=== PATIENT | male | born 1970 | race Caucasian/White ===

== ENCOUNTER 2017-12-01 12:07 | Emergency (ER) | payer MEDICARE, OTHER ==
[~2017-12-01] VITALS: Ht 182.9 cm; Wt 86.2 kg
[~2017-12-01 12:07] MED LIST: ACETAMINOPHEN500 MG PO; HYDHCL25 PO; LISI20 PO
[2017-12-01] MEDS ORDERED: CYCL10 PO (13:14)
[2017-12-01] MEDS ORDERED: METPRE4DP PO (13:14)
[2017-12-01] MEDS ORDERED: Norco 5-325 Ta1 EACH PO (13:14)
== END 2017-12-01 13:44 | disposition home or self-care (01) ==
LOC: ER 12:07
DX: T63.441A Toxic effect of venom of bees, accidental (unintentional), initial encounter (principal); M54.9 Dorsalgia, unspecified; M54.2 Cervicalgia; M25.519 Pain in unspecified shoulder; F17.200 Nicotine dependence, unspecified, uncomplicated; Z79.899 Other long term (current) drug therapy
CPT/HCPCS: 72070; 72100; 99283; Q0163

== ENCOUNTER 2018-06-03 21:30 | Emergency (ER) | payer MEDICARE ==
[~2018-06-03] VITALS: Ht 182.9 cm; Wt 83.9 kg
[~2018-06-03 21:30] MED LIST changes: +CYCL10 PO; +METPRE4DP PO; +Norco 5-325 Ta1 EACH PO
== END 2018-06-03 22:37 | disposition left against medical advice (07) ==
LOC: ER 21:30
DX: K40.90 Unilateral inguinal hernia, without obstruction or gangrene, not specified as recurrent (principal); F17.210 Nicotine dependence, cigarettes, uncomplicated
CPT/HCPCS: 99283

== ENCOUNTER 2018-06-03 23:45 | Emergency (ER) | payer MEDICARE ==
[~2018-06-03] VITALS: Ht 182.9 cm; Wt 79.4 kg
[2018-06-04 00:24] LABS: BASOPHILS ABSOLUTE AUTO 0.08 K/mm3 (0.00-0.23); BASOPHILS PERCENT AUTO 1 % (0-2); EOSINOPHILS ABSOLUTE AUTO 0.14 K/mm3 (0.00-0.68); EOSINOPHILS PERCENT AUTO 2 % (0-6); Hematocrit 40.6 % (37.0-53.0); Hemoglobin 13.7 g/dL (13.5-17.5); IMMATURE GRAN ABSOLUTE AUTO 0.02 K/mm3 (0.00-0.10); IMMATURE GRAN PERCENT AUTO 0 % (0-1); LYMPHOCYTES ABSOLUTE AUTO 1.31 K/mm3 (0.84-5.20); LYMPHOCYTES PERCENT AUTO 15 % (21-46); MONOCYTES ABSOLUTE AUTO 0.51 K/mm3 (0.16-1.47); MONOCYTES PERCENT AUTO 6 % (4-13); Mean Corpuscular HGB 32.4 pg (26.0-34.0); Mean Corpuscular HGB Conc 33.7 g/dL (31.5-36.5); Mean Corpuscular Volume 96 fL (80-100); Mean Platelet Volume 10.2 fL (9.1-12.4); NEUTROPHILS PERCENT AUTO 77 % (41-73); Platelet Count 238 K/mm3 (150-400); RDW Coefficient Variation 13.1 % (11.7-14.2); RDW Standard Deviation 46.7 fL (35.1-46.3); Red Blood Cell Count 4.23 M/mm3 (4.30-5.90); White Blood Cell Count 8.86 K/mm3 (4.00-11.30)
[2018-06-04 00:35] LABS: Prothrombin Time Results 10.3 Sec (9.7-11.5)
[2018-06-04 00:39] LABS: Anion Gap 9 mmol/L (6-16); Blood Urea Nitrogen 14 mg/dL (8-24); Bun/Creatinine Ratio 16.5 (12.0-20.0); CO2, Blood 26 mmol/L (21-32); Calcium, Blood 8.5 mg/dL (8.5-10.1); Chloride, Blood 106 mmol/L (98-108); Creatinine, Blood 0.85 mg/dL (0.60-1.20); Ethanol (Alcohol), Blood, Med 56 mg/dL; Glomerular Filtration Rate >60 (60-); Glucose, Blood 95 mg/dL (70-99); Potassium, Blood 4.2 mmol/L (3.5-5.5); Sodium, Blood 141 mmol/L (136-145)
== END 2018-06-04 02:58 | disposition home or self-care (01) ==
LOC: ER 23:45
PROVIDERS: Emergency Medicine
DX: K40.30 Unilateral inguinal hernia, with obstruction, without gangrene, not specified as recurrent (principal); F17.210 Nicotine dependence, cigarettes, uncomplicated
CPT/HCPCS: 36415; 74176; 80048; 85025; 85610; 96361; 96374; 96375; 99284-25; G0480; J1885; J2405; J3010; J7030

== ENCOUNTER 2018-11-09 20:08 | Inpatient (IN) | payer MEDICARE ==
[~2018-11-09] VITALS: Ht 182.9 cm; Wt 76.5 kg
[2018-11-09 20:33] LABS: Source, Urine Clean Catch
[2018-11-09 20:39] LABS: BASOPHILS ABSOLUTE AUTO 0.12 K/mm3 (0.00-0.23); BASOPHILS PERCENT AUTO 2 % (0-2); EOSINOPHILS ABSOLUTE AUTO 0.38 K/mm3 (0.00-0.68); EOSINOPHILS PERCENT AUTO 5 % (0-6); Hematocrit 33.8 % (37.0-53.0); Hemoglobin 11.1 g/dL (13.5-17.5); IMMATURE GRAN ABSOLUTE AUTO 0.02 K/mm3 (0.00-0.10); IMMATURE GRAN PERCENT AUTO 0 % (0-1); LYMPHOCYTES ABSOLUTE AUTO 0.98 K/mm3 (0.84-5.20); LYMPHOCYTES PERCENT AUTO 14 % (21-46); MONOCYTES ABSOLUTE AUTO 0.66 K/mm3 (0.16-1.47); MONOCYTES PERCENT AUTO 9 % (4-13); Mean Corpuscular HGB 31.1 pg (26.0-34.0); Mean Corpuscular HGB Conc 32.8 g/dL (31.5-36.5); Mean Corpuscular Volume 95 fL (80-100); Mean Platelet Volume 9.3 fL (9.1-12.4); NEUTROPHILS ABSOLUTE AUTO 4.85 K/mm3 (1.96-9.15); NEUTROPHILS PERCENT AUTO 69 % (41-73); Platelet Count 708 K/mm3 (150-400); RDW Coefficient Variation 14.1 % (11.7-14.2); RDW Standard Deviation 48.7 fL (35.1-46.3); Red Blood Cell Count 3.57 M/mm3 (4.30-5.90); White Blood Cell Count 7.01 K/mm3 (4.00-11.30)
[2018-11-09 20:43] LABS: Appearance, Urine Clear (Clear); Bilirubin, Urine Neg (Neg); Blood, Urine 3+ (Neg); Color, Urine Yellow (P-Yellow); Glucose Qualitative, Urine Neg (Neg); Ketones, Urine Neg (Neg); Leukocyte Esterase, Urine Neg (Neg); Nitrite, Urine Neg (Neg); Protein, Urine 2+ (Neg); Specific Gravity, Urine 1.015 (1.003-1.022); Urobilinogen, Urine NORM (Normal); pH, Urine 6.5 (5.0-8.0)
[2018-11-09 20:45] LABS: Calcium, Ionized (POC) 1.08 mmol/L (1.10-1.46); Chloride (POC) 99 mmol/L (98-108); Creatinine (POC) 12.5 mg/dL (0.8-1.3); Glucose (ISTAT POC) 102 mg/dL (70-99); Hemoglobin (POC) 10.2 g/dL (13.5-17.5); Potassium (POC) 4.6 mmol/L (3.5-5.5); Sodium (POC) 133 mmol/L (135-148); Total CO2 (POC) 19 mmol/L (21-32)
[2018-11-09 20:51] LABS: White Blood Cells, Urine 0-2 /hpf (0-5)
[2018-11-09 20:52] LABS: Bacteria Not Seen /hpf; Squamous Epithelial Cells Rare /hpf (Few)
[2018-11-09 21:03] LABS: Magnesium, Blood 2.9 mg/dL (1.6-2.4)
[2018-11-09 21:08] LABS: Albumin, Blood 3.1 g/dL (3.4-5.0); Albumin/Globulin Ratio 0.7 (0.8-1.8); Bilirubin, Total 0.3 mg/dL (0.1-1.0); Bun/Creatinine Ratio 7.9 (12.0-20.0); Calcium, Blood 8.6 mg/dL (8.5-10.1); Creatinine, Blood 12.2 mg/dL (0.60-1.20); Globulin, Blood 4.5 g/dL (2.2-4.0); Potassium, Blood 4.6 mmol/L (3.5-5.5); Total Protein, Blood 7.6 g/dL (6.4-8.2)
[2018-11-10 01:39] LABS: U Amphetamine Screen DETECTED; U Barbituate Screen DETECTED; U Benzodiazapine Screen DETECTED; U Buprenorphine Screen Not Detected; U Cannabinoids Screen Not Detected; U Cocaine Screen Not Detected; U Methadone Screen Not Detected; U Methamphetamine Screen DETECTED; U Opiates Screen DETECTED; U Oxycodone Screen Not Detected; U Phencyclidine Screen Not Detected; U Propoxyphene Screen Not Detected
[2018-11-10 04:22] LABS: BASOPHILS ABSOLUTE AUTO 0.11 K/mm3 (0.00-0.23); BASOPHILS PERCENT AUTO 2 % (0-2); EOSINOPHILS ABSOLUTE AUTO 0.41 K/mm3 (0.00-0.68); EOSINOPHILS PERCENT AUTO 6 % (0-6); Hematocrit 31.2 % (37.0-53.0); Hemoglobin 10.6 g/dL (13.5-17.5); IMMATURE GRAN ABSOLUTE AUTO 0.02 K/mm3 (0.00-0.10); IMMATURE GRAN PERCENT AUTO 0 % (0-1); LYMPHOCYTES ABSOLUTE AUTO 1.13 K/mm3 (0.84-5.20); LYMPHOCYTES PERCENT AUTO 16 % (21-46); MONOCYTES ABSOLUTE AUTO 0.82 K/mm3 (0.16-1.47); MONOCYTES PERCENT AUTO 12 % (4-13); Mean Corpuscular HGB 31.2 pg (26.0-34.0); Mean Corpuscular Volume 92 fL (80-100); Mean Platelet Volume 9.8 fL (9.1-12.4); NEUTROPHILS ABSOLUTE AUTO 4.45 K/mm3 (1.96-9.15); NEUTROPHILS PERCENT AUTO 64 % (41-73); Platelet Count 673 K/mm3 (150-400); RDW Coefficient Variation 14.1 % (11.7-14.2); RDW Standard Deviation 47.3 fL (35.1-46.3); White Blood Cell Count 6.94 K/mm3 (4.00-11.30)
[2018-11-10 05:15] LABS: Alanine Aminotransfer (ALT/SGP 80 U/L (12-78); Albumin, Blood 2.6 g/dL (3.4-5.0); Albumin/Globulin Ratio 0.7 (0.8-1.8); Alk Phos 147 U/L (50-136); Anion Gap 14 mmol/L (6-16); Aspartate Aminotrans (AST/SGOT 44 U/L (12-37); Bilirubin, Total 0.3 mg/dL (0.1-1.0); Blood Urea Nitrogen 104 mg/dL (8-24); Bun/Creatinine Ratio 8.6 (12.0-20.0); CO2, Blood 22 mmol/L (21-32); Chloride, Blood 100 mmol/L (98-108); Globulin, Blood 3.9 g/dL (2.2-4.0); Glomerular Filtration Rate 5 (60-); Glucose, Blood 121 mg/dL (70-99); Phosphorus, Blood 8.2 mg/dL (2.5-4.9); Potassium, Blood 4.6 mmol/L (3.5-5.5); Sodium, Blood 136 mmol/L (136-145); Total Protein, Blood 6.5 g/dL (6.4-8.2)
--- NOTE | 2018-11-10 07:31 | NUR ---
SHIFT SUMMARY: PATIENT ADMITTED EARLIER THIS SHIFT. PATIENT ABLE TO TRANSFER SELF FROM THE GURNEY TO THE BED WITH ONE PERSON ASSIST BUT WAS VERY WEAK AND SHAKEY. PATIENT IS A POOR HISORTIAN. PATIENT HAS BEEN IRRITABLE AND CURSING AT STAFF. PATIENT VERY FRUSTRATED THAT HIS NEWLY PERCHASED CELL PHONE IS NOT WORKING WELL. PATIENT EASILY AGITATED AND ESCALATES QUICKLY. PATIENT DIFFICULT TO VERBALLY DESCALATE. PATIENT KEEPS STATING "IF I WERE IN A LIQURE STORE, I WOULDN'T HAVE THIS PROBLEM." AND "IF I WAS HOME DOING WHAT I NORMALLY DO I WOULDN'T BE FEELING LIKE THIS." AT ONE POINT PATIENT WAS HITTING HIS CELL PHONE AGAINST THE TABLE SAYING HE WAS TRYING TO BREAK IT IN TWO. PATIENT ALSO THREW HIS CELL PHONE ON THE FLOOR AT ONE POINT. EDUCATION ATTEMPTED BUT HAS APPEARED UNSUCCESSFUL. CIWA'S CHARTED. PATIENT MEDICATED FOR CIWA'S PER EMAR. REPORT GIVEN TO ONCOMING RN.
--- NOTE | 2018-11-10 11:37 | NUR ---
PT RECEIVING HEMO DIALYSIS. APPEARS VERY CONFUSED. ASKING FOR PAIN MEDICATION FOR HEADACHE AND THEN FALLING ASLEEP. PT EMPTYING HIS WALLET ONTO BED WHEN AWAKE. LOOKING FOR "PHONE NUMBERS" GETTING AGITATED WHEN ASKED IF HE NEEDS HELP TELLS STAFF TO GET THE "F" AWAY FROM HIM. IV ATIVAN AND LIBRIUM PROVIDED TO PATIENT. APPEARS TO CALM HIM DOWN SLIGHTLY. WILL CONTINUE TO MONITOR THIS PATIENT CLOSELY.
--- NOTE | 2018-11-10 15:30 | NUR ---
MAKING ROUNDS ASKING ABOUT THIS PATIENT. PT IS RESTING COMFORTABLY AT THIS TIME. DECISION TO HOLD ON VITALS SINCE PATIENT BECOMES AGITATED WHEN HE WAKES. IF PATIENT BECOMES INCREASINGLY AGITATED AND APPEARS PSYCHOTIC WILL ORDER ZYPREXA PO. WILL CONTINUE TO MONITOR THIS PATIENT CLOSELY.
--- NOTE | 2018-11-10 17:37 | NUR ---
END OF SHIFT; PT HAS EPISODES OF ANGER NOTED TODAY WHEN HE STRIKES OUT AND THROWS THINGS OFF HIS BEDSIDE TABLE. PT IS CONFUSED FOR MOST OF DAY. YELLING AT STAFF AND CALLING THEM [facility]. HE RECEIVED DIALYSIS TODAY FOR 3 HOURS AND 2 LITERS WAS REMOVED. HIS BLOOD PRESSURE IS ELEVATED AT THIS TIME AND HE RECEIVED 10MG HYDRALAZINE IVP FOR SAME. HE COMPLAINS INTERMITTENTLY OF A HEADACHE BUT THEN DENIES HE HAS ONE A FEW MINUTES LATER. HE DOES STAY IN BED DURING DAY AND DOES NOT TRY TO GET UP. HE IS MONITORED CLOSELY DURING DAY.
--- NOTE | 2018-11-10 18:10 | NUR ---
PT INSISTING ON LEAVING. CALLING [facility] [facility] TO STAFF THROWING THINGS. TOOK CALL LIGHT AND THREW IT AT [facility]. MISSING HER AND IT LANDED ON FLOOR. TECH RUNS FROM ROOM. THIS RN HAD BEEN IN ROOM 15 MINUTES PRIOR TO THAT PASSING MEDICATION AND PUSHING HYDRALAZINE 10MG IV FOR ELEVATED BP. PT IS NOTED TO BE PACING IN ROOM. YELLING GET THIS FUCKING STUFF OFF OF ME. YOU MOTHER FUCKERS I HAVE AMIGRAINE AND YOU DON'T CARE" ATTEMPT TO DE ESCALATE SITUATION BY ROSALINDA RN AND ESPERANZA RN ARE UNSUCCESSFUL. PT INSISISTING ON LEAVING AND TELLING STAFF NOT TO TOUCH HIM. ESPERANZA RN ASKS HIM IF SHE CAN REMOVE HIS IV PRIOR TO HIM LEAVING AND PT STATES "WHY SO YOU CAN FUCKING USE IT ON SOMEONE ELSE" JANET ESCALANTE CALLED AND SECURITY STAFF ARRIVE. PT SITTING ON BED CUSSING AT NURSING STAFF AND SECURITY SAYING THAT HE IS GOING TO LEAVE WHEN HE IS GOOD AND READY TOO. HE REFUSES TO SIGN AMA FORM. HE IS STILL EXPRESSING THAT HE IS LEAVING AND THAT KNOW ONE BETTER TRY AND STOP HIM. SECURITY ESCORTS PATIENT OUT OF ROOM AND DOWN HALLWAY TO PATIENT EXIT.
--- NOTE | 2018-11-10 19:21 | NUR ---
DIALYSIS REPORTED PT'S AMA FROM HOSPITAL TO DR TIRADO VIA THE PHONE. DR TIRADO HAD WANTED THE PT ADMTTED TO [facility]. DISCHARGE PLANNERS WERE NOT HERE OVER THE WEEKEND AND IT TAKES 3 TO HAVE [facility] APPROVE ADMISSION. DR TIRADO SAID DR YOUNG'S OFFICE WILL WORK ON IT ON MON.
[2018-11-11 08:07] LABS: HBSAG SCREEN Negative (Negative); HEP A AB, IGM Negative (Negative); HEP B CORE AB, IGM Negative (Negative); HEP C VIRUS AB <0.1 (0.0-0.9)
== END 2018-11-10 18:17 | disposition left against medical advice (07) | DRG 77 ==
LOC: ER 20:08 → PCU 21:56
PROVIDERS: Emergency Medicine; ADMIT Family Medicine
PROC: 5A1D70Z Performance of Urinary Filtration, Intermittent, Less than 6 Hours Per Day (ICD-10-PCS; principal; 2018-11-10)
DX: I67.4 Hypertensive encephalopathy (principal); N18.6 End stage renal disease; I12.0 Hypertensive chronic kidney disease with stage 5 chronic kidney disease or end stage renal disease; E87.2 Acidosis; E83.39 Other disorders of phosphorus metabolism; D63.1 Anemia in chronic kidney disease; G40.909 Epilepsy, unspecified, not intractable, without status epilepticus; F17.210 Nicotine dependence, cigarettes, uncomplicated; I16.0 Hypertensive urgency; R79.89 Other specified abnormal findings of blood chemistry; D47.3 Essential (hemorrhagic) thrombocythemia; F10.10 Alcohol abuse, uncomplicated; Y90.0 Blood alcohol level of less than 20 mg/100 ml; Z99.2 Dependence on renal dialysis; Z91.15 Patient's noncompliance with renal dialysis; Z86.19 Personal history of other infectious and parasitic diseases
CPT/HCPCS: 36415; 70450; 71045; 80047; 80053; 80074; 81001; 83735; 83970; 84100; 85014; 85025; 93005; 93010; 96374; 96375; 96376; 99285-25; G0480; J0360; J2060; J2405; J3010

== ENCOUNTER → 2018-12-17 | Outpatient (CLI) | payer MEDICARE ==
[2018-12-17 14:46] LABS: BASOPHILS ABSOLUTE AUTO 0.05 K/mm3 (0.00-0.23); BASOPHILS PERCENT AUTO 1 % (0-2); EOSINOPHILS ABSOLUTE AUTO 0.25 K/mm3 (0.00-0.68); EOSINOPHILS PERCENT AUTO 5 % (0-6); Hematocrit 28.8 % (37.0-53.0); Hemoglobin 9.4 g/dL (13.5-17.5); IMMATURE GRAN ABSOLUTE AUTO 0.01 K/mm3 (0.00-0.10); IMMATURE GRAN PERCENT AUTO 0 % (0-1); LYMPHOCYTES ABSOLUTE AUTO 1.79 K/mm3 (0.84-5.20); LYMPHOCYTES PERCENT AUTO 33 % (21-46); MONOCYTES ABSOLUTE AUTO 0.53 K/mm3 (0.16-1.47); MONOCYTES PERCENT AUTO 10 % (4-13); Mean Corpuscular HGB 30.7 pg (26.0-34.0); Mean Corpuscular HGB Conc 32.6 g/dL (31.5-36.5); Mean Corpuscular Volume 94 fL (80-100); Mean Platelet Volume 9.7 fL (9.1-12.4); NEUTROPHILS ABSOLUTE AUTO 2.78 K/mm3 (1.96-9.15); NEUTROPHILS PERCENT AUTO 51 % (41-73); Platelet Count 269 K/mm3 (150-400); RDW Coefficient Variation 14.1 % (11.7-14.2); Red Blood Cell Count 3.06 M/mm3 (4.30-5.90); White Blood Cell Count 5.41 K/mm3 (4.00-11.30)
[2018-12-17 14:59] LABS: Albumin, Blood 3.7 g/dL (3.4-5.0); Bilirubin, Total 0.3 mg/dL (0.1-1.0); Bun/Creatinine Ratio 20.3 (12.0-20.0); Calcium, Blood 8.2 mg/dL (8.5-10.1); Creatinine, Blood 1.48 mg/dL (0.60-1.20); Globulin, Blood 3.6 g/dL (2.2-4.0); Potassium, Blood 4.8 mmol/L (3.5-5.5); Total Protein, Blood 7.3 g/dL (6.4-8.2)
== END | disposition home or self-care (01) ==
LOC: LAB EV 14:43 → LAB SHORT 14:43
PROVIDERS: Physician Assistant Medical
DX: R60.9 Edema, unspecified (principal); R94.4 Abnormal results of kidney function studies
CPT/HCPCS: 80053; 85025

== ENCOUNTER 2018-12-21 15:51 | Emergency (ER) | payer MEDICARE ==
[~2018-12-21] VITALS: Ht 182.9 cm; Wt 81.7 kg
[2018-12-21 16:21] LABS: BASOPHILS ABSOLUTE AUTO 0.06 K/mm3 (0.00-0.23); BASOPHILS PERCENT AUTO 1 % (0-2); EOSINOPHILS ABSOLUTE AUTO 0.25 K/mm3 (0.00-0.68); EOSINOPHILS PERCENT AUTO 4 % (0-6); Hematocrit 31.1 % (37.0-53.0); IMMATURE GRAN ABSOLUTE AUTO 0.01 K/mm3 (0.00-0.10); IMMATURE GRAN PERCENT AUTO 0 % (0-1); LYMPHOCYTES ABSOLUTE AUTO 2.01 K/mm3 (0.84-5.20); LYMPHOCYTES PERCENT AUTO 32 % (21-46); MONOCYTES ABSOLUTE AUTO 0.47 K/mm3 (0.16-1.47); MONOCYTES PERCENT AUTO 8 % (4-13); Mean Corpuscular HGB 31.3 pg (26.0-34.0); Mean Corpuscular HGB Conc 32.2 g/dL (31.5-36.5); Mean Platelet Volume 9.7 fL (9.1-12.4); NEUTROPHILS PERCENT AUTO 55 % (41-73); Platelet Count 236 K/mm3 (150-400); RDW Coefficient Variation 13.9 % (11.7-14.2); Red Blood Cell Count 3.19 M/mm3 (4.30-5.90)
[2018-12-21 16:22] LABS: Mean Corpuscular Volume 98 fL (80-100)
[2018-12-21 16:40] LABS: Alanine Aminotransfer (ALT/SGP 24 U/L (12-78); Albumin/Globulin Ratio 1.2 (0.8-1.8); Alk Phos 81 U/L (50-136); Anion Gap 8 mmol/L (6-16); Aspartate Aminotrans (AST/SGOT 17 U/L (12-37); Bilirubin, Total 0.4 mg/dL (0.1-1.0); Blood Urea Nitrogen 28 mg/dL (8-24); Bun/Creatinine Ratio 21.1 (12.0-20.0); CO2, Blood 22 mmol/L (21-32); Calcium, Blood 8.5 mg/dL (8.5-10.1); Chloride, Blood 109 mmol/L (98-108); Creatinine, Blood 1.33 mg/dL (0.60-1.20); Globulin, Blood 3.4 g/dL (2.2-4.0); Glomerular Filtration Rate >60 (60-); Glucose, Blood 89 mg/dL (70-99); Potassium, Blood 4.8 mmol/L (3.5-5.5); Sodium, Blood 139 mmol/L (136-145); Total Protein, Blood 7.4 g/dL (6.4-8.2); Troponin I <0.015 ng/mL (0.000-0.040)
[2018-12-21 19:27] LABS: U Amphetamine Screen Not Detected; U Barbituate Screen Not Detected; U Benzodiazapine Screen Not Detected; U Buprenorphine Screen Not Detected; U Cannabinoids Screen Not Detected; U Cocaine Screen Not Detected; U Methadone Screen Not Detected; U Methamphetamine Screen Not Detected; U Opiates Screen Not Detected; U Oxycodone Screen Not Detected; U Phencyclidine Screen Not Detected; U Propoxyphene Screen Not Detected
== END 2018-12-21 19:23 | disposition home or self-care (01) ==
LOC: ER 15:51
PROVIDERS: Emergency Medicine; Physician Assistant
DX: I10 Essential (primary) hypertension (principal); R07.89 Other chest pain; F19.10 Other psychoactive substance abuse, uncomplicated; F17.210 Nicotine dependence, cigarettes, uncomplicated
CPT/HCPCS: 36415; 71046; 80053; 84484; 85025; 93005; 93010